=== PATIENT | female | born 1985 ===

== ENCOUNTER 2017-11-03 12:23 | Emergency (ER) | payer BC ==
[2017-11-03 13:08] VITALS: BP 109/68
--- NOTE | 2017-11-03 13:23 | UC ---
Throat Pain/Nasal Buzz HPI - HPI Summary HPI Summary: Pt presents with sinus pain/pressure/congestion for 2 weeks. She has tried many OTC remedies such as essential oils, aromatherapy, acupuncture, honey, and other herbal remedies with no relief. She denies fever, chills, cough, ST, SOB, chest pain, abdominal pain, N/V/d/C. - History of Current Complaint Chief Complaint: UCRespiratory Stated Complaint: SINUS ISSUE Time Seen by Provider: 11/03/17 13:22 Hx Obtained From: Patient Hx Last Menstrual Period: 11/01/17 Onset/Duration: Gradual Onset Severity: Moderate Pain Intensity: 6 Pain Scale Used: 0-10 Numeric - Allergies/Home Medications Allergies/Adverse Reactions: Allergies Allergy/AdvReac Type Severity Reaction Status Date / Time No Known Allergies Allergy Verified 05/14/14 03:58 PMH/Surg Hx/FS Hx/Imm Hx Previously Healthy: Yes - Surgical History Surgical History: None - Social History Occupation: Employed Full-time Lives: With Family Alcohol Use: Rare Substance Use Type: None Smoking Status (MU): Never Smoked Tobacco Review of Systems Constitutional: Negative Skin: Negative Eyes: Negative ENT: Nasal Discharge, Sinus Congestion, Sinus Pain/Tenderness Respiratory: Negative Cardiovascular: Negative Gastrointestinal: Negative All Other Systems Reviewed And Are Negative: Yes Physical Exam Triage Information Reviewed: Yes Appearance: Well-Appearing, Well-Nourished Vital Signs: Initial Vital Signs Temp 98.4 F 11/03/17 13:04 Pulse 82 11/03/17 13:04 Resp 18 11/03/17 13:04 BP 109/68 11/03/17 13:04 Pulse Ox 100 11/03/17 13:04 Vital Signs Reviewed: Yes Eyes: Positive: Conjunctiva Clear. Negative: Conjunctiva Inflamed, Discharge ENT: Positive: Hearing grossly normal, Pharynx normal, Nasal congestion, Nasal drainage, TMs normal, Sinus tenderness, Uvula midline. Negative: Pharyngeal erythema, TM bulging, TM dull, TM red, Tonsillar swelling, Tonsillar exudate, Hoarse voice Neck: Positive: Supple, Nontender, No Lymphadenopathy Respiratory: Positive: Chest non-tender, Lungs clear, Normal breath sounds, No respiratory distress, No accessory muscle use Cardiovascular: Positive: RRR, No Murmur, Pulses Normal Neurological: Positive: Alert Psychological: Positive: Age Appropriate Behavior Skin: Negative: rashes Throat Pain/Nasal Course/Dx - Course Course Of Treatment: Sinusitis - Amoxicillin 10 days - Differential Dx/Diagnosis Provider Diagnoses: Sinusitis Discharge - Discharge Plan Condition: Stable Disposition: HOME Prescriptions: Amoxicillin PO (*) [Amoxicillin 500 MG CAP*] 500 mg PO Q12H #20 cap Patient Education Materials: Sinusitis (ED) Referrals: Nery Mendoza MD [Primary Care Provider] - Additional Instructions: If you develop a fever, SOB, chest pain, new or worsening symptoms - please call your PCP or go to the ED.
== END 2017-11-03 13:45 | disposition home or self-care (01) ==
LOC: UCEAST 12:23
DX: J32.9 Chronic sinusitis, unspecified (principal)
CPT/HCPCS: 99212; G0463

== ENCOUNTER 2019-12-14 13:19 | Inpatient (IN) | payer BC ==
--- NOTE | 2019-12-14 14:01 | ED ---
Psychiatric Complaint - HPI Summary HPI Summary: This patient is a 34 year old F presenting to [facility] accompanied by with a chief complaint of panicking since few days ago. Symptoms aggravated by nothing. Symptoms alleviated by nothing. Patient reports she has been having a hard time and does not know whats going to happen next, tired, hard time sleeping, racing thoughts, memories, judging myself a lot, attacking entire life , not being good enough, feeling like she doesn't want to live life, feeling like shes giving everyone disease. Pt reports she has been hospitalized previously for similar reasons and walks around with similar thoughts but not to this intensity. No active thoughts of doing anything to herself but feels like her is going to happen. Pt reports she feels safe at home when she is functioning normally/has agency on her body. 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 Pt states feeling like my internal weather is affecting the external weather. reports similar experience 1 -2 yrs ago paranoia that was drug induced but pt was fine the next day. Pt reports no drugs recently. - History Of Current Complaint Chief Complaint: EDMentalHealth Time Seen by Provider: 12/14/19 13:32 Hx Obtained From: Patient, Family/Concessionist - Hx Last Menstrual Period: 11/01/17 Onset/Duration: Lasting Days, Still Present Timing: Constant Character: Anxious Aggravating Factor(s): Nothing Alleviating Factor(s): Nothing Related History: Positive For: Prior Psychiatric Issues - Allergies/Home Medications Allergies/Adverse Reactions: Allergies Allergy/AdvReac Type Severity Reaction Status Date / Time No Known Allergies Allergy Verified 12/14/19 17:45 Home Medications: Home Medications OLANzapine TAB* [Zyprexa 2.5 MG TAB*] 2.5 mg PO DAILY 12/14/19 [History Confirmed 12/14/19] Propranolol 10 mg TAB [Inderal 10 mg TAB] 10 mg PO DAILY PRN 12/14/19 [History Confirmed 12/14/19] Zolpidem TAB* [Ambien TAB*] 5 mg PO BEDTIME PRN 12/14/19 [History Confirmed 06/25] buPROPion TAB* [Wellbutrin TAB*] 75 mg PO BID 12/14/19 [History Confirmed ] PMH/Surg Hx/FS Hx/Imm Hx Endocrine/Hematology History: Denies: Hx Diabetes Sensory History: Denies: Hx Contacts or Glasses Opthamlomology History: Denies: Hx Contacts or Glasses - Surgical History Surgery Procedure, Year, and Place: when 15 yrs old Infectious Disease History: No Infectious Disease History: Denies: Traveled Outside the [place] in Last 30 Days - Family History Known Family History: Positive: Other - Cancer, alcoholism, psychiatric issues - Social History Alcohol Use: Rare Hx Substance Use: No Substance Use Type: Reports: None Hx Tobacco Use: No Smoking Status (MU): Never Smoked Tobacco Review of Systems Negative: Fever Positive: Other - panicking All Other Systems Reviewed And Are Negative: Yes Physical Exam - Summary Physical Exam Summary: Constitutional: Well-developed, Well-nourished, Alert. Tearful, pressured speech Skin: Warm, Dry HENT: Normocephalic; Atraumatic Eyes: Conjunctiva normal Neck: Musculoskeletal ROM normal neck. (-) JVD, (-) Stridor, (-) Tracheal deviation Cardio: Rhythm regular, rate normal, Heart sounds normal; Intact distal pulses; Radial pulses are 2+ and symmetric. (-) Murmur Pulmonary/Chest wall: Effort normal. (-) Respiratory distress, (-) Wheezes, (-) Rales Abd: Soft, (-) tenderness, (-) Distension, (-) Guarding, (-) Rebound Musculoskeletal: (-) Edema Lymph: (-) Cervical adenopathy Neuro: Alert, Oriented x3 Psych: Mood and affect Normal Triage Information Reviewed: Yes Vital Signs On Initial Exam: Initial Vitals Temp Pulse Resp BP Pulse Ox 98.9 F 94 12 177/76 99 12/14/19 13:24 12/14/19 13:24 12/14/19 13:24 12/14/19 13:24 12/14/19 13:24 Vital Signs Reviewed: Yes Procedures - Sedation Patient Received Moderate/Deep Sedation with Procedure: No Diagnostics - Vital Signs Vital Signs Temp Pulse Resp BP Pulse Ox 12/14/19 13:24 98.9 F 94 12 177/76 99 - Laboratory Result Diagrams: 12/14/19 14:11 12/14/19 14:11 Lab Statement: Any lab studies that have been ordered have been reviewed, and results considered in the medical decision making process. Course/Dx - Course Course Of Treatment: Patient is here with a manic type symptoms. Patient is medically cleared by myself. Patient was evaluated by the psychiatric team who admitted her voluntarily. - Differential Dx/Clinical Impression Provider Diagnosis: Bipolar disorder - Physician Notifications Discussed Care Of Patient With: Demario Hernandez Time Discussed With Above Provider: 16:00 Instructed by Provider To: Admit As Inpatient Discharge ED - Sign-Out/Discharge Documenting (check all that apply): Patient Departure - admit voluntary - Discharge Plan Condition: Stable Disposition: ADMITTED TO [facility] - Billing Disposition and Condition Condition: STABLE Disposition: Admitted to [facility] - Attestation Statements Document Initiated by Sarina: Yes Documenting Scribe: Aisha Abad Provider For Whom Sarina is Documenting (Include Credential): Dr. Jose Nuno MD Scribe Attestation: Aisha Millan, scribed for Dr. Jose Nuno MD on 12/14/19 at 2052. Scribe Documentation Reviewed: Yes Provider Attestation: The documentation as recorded by the Aisha villanueva accurately reflects the service I personally performed and the decisions made by me, Dr. Jose Nuno MD Status of Scribe Document: Viewed
[2019-12-14] MEDS ORDERED: LORazepam TAB(*) 1 MG PO ONE (14:04)
[2019-12-14 14:17] LABS: ABS Lymphocytes 1.1 10^3/ul (1.0-4.8); ABS Monocytes 0.7 10^3/ul (0-0.8); ABS Neutrophils 4.6 10^3/ul (1.5-7.7); Eosinophil % 0.1 %; Hematocrit 40 % (35-47); Hemoglobin 14.2 g/dL (12.0-16.0); Lymphocyte % 17.7 %; Mean Corpuscular HGB Conc 35 g/dL (31-36); Mean Corpuscular Hemoglobin 33 pg (27-31); Mean Corpuscular Volume 94 fL (80-97); Mean Platelet Volume 7.1 fL (7.4-10.4); Platelet Count 361 10^3/uL (150-450); Red Cell Distribution Width 12 % (10-15); White Blood Count 6.5 10^3/uL (3.5-10.8)
[2019-12-14 14:39] LABS: ALT 30 U/L (7-52); AST 23 U/L (13-39); Albumin 4.8 g/dL (3.2-5.2); Albumin/Globulin Ratio 1.5 (1-3); Alkaline Phosphatase 44 U/L (34-104); Anion Gap 10 mmol/L (2-11); BUN/Creatinine Ratio 8.2 (8-20); Blood Urea Nitrogen 9 mg/dL (6-24); CO2 Carbon Dioxide 23 mmol/L (22-32); Calcium 9.6 mg/dL (8.6-10.3); Chloride 104 mmol/L (101-111); EGFR Non-African American 56.2 (>60); Globulin 3.1 g/dL (2-4); Glucose 104 mg/dL (70-100); Potassium 4.4 mmol/L (3.5-5.0); Sodium 137 mmol/L (135-145); Total Protein 7.9 g/dL (6.4-8.9)
[2019-12-14 14:43] LABS: HCG Pregnancy < 0.60 mIU/mL
[2019-12-14 14:57] LABS: Acetaminophen < 15 mcg/mL; Alcohol < 10 mg/dL (<10); Salicylate < 2.50 mg/dL (<30)
[2019-12-14] MEDS ORDERED: Zolpidem TAB* 5 MG PO PRN (22:29)
[2019-12-14] MEDS ORDERED: lamoTRIgine TAB(*) 100 MG ONE (22:40)
[2019-12-15] MEDS: lamoTRIgine TAB(*) 100 MG PO SCH ×2 (00:16→08:08)
[2019-12-15] MEDS ORDERED: LORazepam TAB(*) 1 MG PO ONE (08:00)
[2019-12-15] MEDS ORDERED: LORazepam TAB(*) 1 MG ONE (08:06)
[2019-12-15 08:29] LABS: HDL Cholesterol 54.1 mg/dL
[2019-12-15] MEDS ORDERED: LORazepam TAB(*) 1 MG PO PRN (13:13)
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
[2019-12-16 09:09] VITALS: BP 119/66
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
[2019-12-16] MEDS ORDERED: lamoTRIgine TAB(*) 100 MG PO SCH (21:00)
== END 2019-12-16 13:15 | disposition home or self-care (01) | DRG 753 ==
LOC: ED 13:19 → BSU 16:54
PROVIDERS: ADMIT Psychiatry & Neurology Psychiatry; ATTEND Psychiatry & Neurology Psychiatry
DX: F31.2 Bipolar disorder, current episode manic severe with psychotic features (principal); Z79.3 Long term (current) use of hormonal contraceptives; Z79.899 Other long term (current) drug therapy; Z81.8 Family history of other mental and behavioral disorders
CPT/HCPCS: 36415; 80053; 80061; 80320; 80329; 83036; 84702; 85025; 99222; 99238; 99285; A9270-GY; G0480